=== PATIENT | female | born 1985 | race American Indian/Alaskan Native ===

== ENCOUNTER 2017-09-12 07:08 | Emergency (ER) | payer OTHER ==
[2017-09-12 08:00] VITALS: BP 134/89
[2017-09-12] MEDS ORDERED: MOTRIN PO ONE (08:22)
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
== END 2017-09-12 09:22 | disposition home or self-care (01) ==
LOC: ED 07:08
DX: S39.012A Strain of muscle, fascia and tendon of lower back, initial encounter (principal); V79.59XA Passenger on bus injured in collision with other motor vehicles in traffic accident, initial encounter; Y92.488 Other paved roadways as the place of occurrence of the external cause; Y93.89 Activity, other specified; Y99.8 Other external cause status
CPT/HCPCS: 99283